=== PATIENT | female | born 1970 | race African-American/Black ===

== ENCOUNTER 2017-08-29 17:56 | Emergency (ER) | payer SELFPAY ==
[~2017-08-29 17:56] MED LIST: ISOVUE-370 76%-LOCM 1 ML ONE
[2017-08-29 18:30] LABS: #Eosinphils 0.1 thou/uL (0.0-0.7); #Lymphocytes 1.5 thou/uL (1.20-3.40); #Monocytes 0.5 thou/uL (0.11-0.59); #Neutrophils 4.4 thou/uL (1.40-6.50); %Basophils 0.1 % (0.0-1.0); %Eosinophils 0.9 % (0.0-10.0); %Lymphocytes 22.7 % (21.0-51.0); %Neutrophils 69.2 % (42.0-75.0); Mean Corpuscular HGB CONC 33.1 g/dL (32.0-36.0); Mean Corpuscular Hemoglobin 31.1 pg (27.0-31.0); Mean Platelet Volume 6.9 fL (7.4-10.4); Platelet Count 230 thou/uL (130-400); RBC Distribution Width 13.2 % (11.5-14.5); Red Blood Cell (RBC) Count 4.49 mill/uL (4.20-5.40); White Blood Cell (WBC) Count 6.4 thou/uL (4.8-10.8)
[2017-08-29 18:45] LABS: ALT (SGPT) 8 U/L (8-55); AST (SGOT) 8 U/L (5-34); Albumin 3.9 g/dL (3.5-5.0); Alkaline Phosphatase 58 U/L (40-150); Anion Gap 10 mmol/L (10-20); BUN (Urea Nitrogen) 6 mg/dL (7.0-18.7); Bilirubin, Total 0.8 mg/dL (0.2-1.2); Calc. Creatinine Clearance 0 mL/min (70-130); Calcium 9.3 mg/dL (7.8-10.44); Carbon Dioxide 28 mmol/L (22-29); Chloride 104 mmol/L (98-107); Estimated GFR-MDRD 82; Glucose 99 mg/dL (70-105); Protein, Total 6.9 g/dL (6.0-8.3); Sodium 138 mmol/L (136-145)
[2017-08-29 18:49] LABS: CKMB 0.2 ng/mL (0-6.6); Troponin I Less than 0.010 ng/mL (< 0.028)
--- NOTE | 2017-08-29 19:11 | RAD ---
RADIOGRAPH CHEST 1 VIEW: 08/29/17 HISTORY: 47-year-old female with chest pain. FINDINGS: The thoracic aorta is tortuous and ectatic. There is no evidence of air space density, pneumothorax, or pulmonary edema. The lateral costophrenic angles are sharp. IMPRESSION: 1) No acute pulmonary findings. 2) Ectasia of thoracic aorta. vianey [] POS: [facility]
[2017-08-29] MEDS ORDERED: HYDROcodone/Acetaminophen 5/325 mg Tablet ONE (19:17)
--- NOTE | 2017-08-29 20:20 | CT ---
CT NECK SOFT TISSUES WITH CONTRAST: 08/29/17 HISTORY: 47-year-old female with right facial swelling and dental pain. FINDINGS: There is poor dentition, with lucencies around the roots of multiple teeth, some of which are probabl y radicular cysts, especially involving the maxilla. There is dehiscence of the cortical bone lateral to one of the maxillary molar teeth. Adjacent to that, there is soft tissue thickening and fat stran ding representing edema in the right buccal space. There is a greater degree of soft tissue edema ant erior to the mandibular symphysis, and to the right and left of the anterior mandible. Streak artifac t from dental amalgam obscures many of the images. Some of the edema extends down fascial planes to t he right submandibular space. Bilateral submandibular glands are unremarkable. Mildly enlarged multip le bilateral submandibular (level Ib) lymph nodes. Additional multiple mildly enlarged, reactive lymp h nodes bilaterally throughout all cervical levels. There are small low density lesions at midline in the pharyngeal mucosal space of the nasopharynx. These are nonspecific, and could represent [place] cysts or mucous retention cysts. There is no retropharyngeal abscess. No major pathology of the la rynx. Thyroid gland is diffusely enlarged, without evidence of discrete mass. Flattening of the heads of the mandibular condyles. Parotid glands are unremarkable. IMPRESSION: 1. Poor dentition. 2. Findings suggestive of right sided dental abscess. 3. Phlegmon/cellulitis involving the soft tissues superficial to, anterior to the mandible. 4. No surgically drainable abscess fluid collection. POS: [facility]
[2017-08-29] MEDS ORDERED: Clindamycin/D5W 600 mg/50 ml Premix Bag ONE (21:24)
[2017-08-29] MEDS ORDERED: Ketorolac Tromethamine 30 MG/ML VIAL ONE (22:24)
--- NOTE | 2017-09-17 00:25 | EKG ---
Test Reason : CP Blood Pressure : / mmHG Vent. Rate : 091 BPM Atrial Rate : 091 BPM P-R Int : 124 ms QRS Dur : 074 ms QT Int : 346 ms P-R-T Axes : 065 -27 055 degrees QTc Int : 425 ms Normal sinus rhythm Possible Left atrial enlargement Left ventricular hypertrophy with repolarization abnormality Cannot rule out Septal infarct , age undetermined Abnormal ECG Confirmed by HECTOR REHMAN ([id number]), makeup editor RASHAD CHAHAL ([id number]) on 09/17/2017 12:24:26 AM Referred By: Confirmed By:HECTOR REHMAN
== END 2017-08-29 22:32 | disposition home or self-care (01) ==
LOC: ERS 17:56
DX: K04.7 Periapical abscess without sinus (principal); I10 Essential (primary) hypertension; F41.9 Anxiety disorder, unspecified; F32.9 Major depressive disorder, single episode, unspecified; F17.210 Nicotine dependence, cigarettes, uncomplicated; F20.9 Schizophrenia, unspecified; Z79.899 Other long term (current) drug therapy
CPT/HCPCS: 36415; 70491; 71045; 80053; 82553; 84484; 85025; 93005; 96365; 96375; J1885; J3490

== ENCOUNTER 2018-07-11 21:49 | Emergency (ER) | payer SELFPAY ==
[2018-07-11] MEDS ORDERED: Ketorolac Tromethamine 30 MG/ML VIAL ONE (22:26)
[2018-07-11] MEDS ORDERED: Metoclopramide HCl 10 MG/2 ML VIAL ONE (22:26)
== END 2018-07-11 23:32 | disposition home or self-care (01) ==
LOC: ERS 21:49
DX: I10 Essential (primary) hypertension (principal); R51 Headache; F41.9 Anxiety disorder, unspecified; F31.9 Bipolar disorder, unspecified; F20.9 Schizophrenia, unspecified; F17.210 Nicotine dependence, cigarettes, uncomplicated; Z79.899 Other long term (current) drug therapy
CPT/HCPCS: 93005; 96365; 96375; J1885; J2765

== ENCOUNTER 2018-08-20 02:14 | Emergency (ER) | payer SELFPAY ==
[2018-08-20 02:46] LABS: Hemoglobin 13.2 g/dL (12.0-16.0); Mean Corpuscular HGB CONC 32.4 g/dL (32.0-36.0); Mean Corpuscular Hemoglobin 30.5 pg (27.0-31.0); Mean Corpuscular Volume 94.3 fL (78.0-98.0); Platelet Count 214 thou/uL (130-400); RBC Distribution Width 13.3 % (11.5-14.5); Red Blood Cell (RBC) Count 4.31 mill/uL (4.20-5.40); White Blood Cell (WBC) Count 4.9 thou/uL (4.8-10.8)
[2018-08-20 03:09] LABS: ALT (SGPT) 17 U/L (8-55); AST (SGOT) 12 U/L (5-34); Albumin 3.8 g/dL (3.5-5.0); Alkaline Phosphatase 52 U/L (40-150); Anion Gap 13 mmol/L (10-20); BUN (Urea Nitrogen) 5 mg/dL (7.0-18.7); Bilirubin, Total 0.3 mg/dL (0.2-1.2); Calc. Creatinine Clearance 0 mL/min (70-130); Carbon Dioxide 24 mmol/L (22-29); Chloride 109 mmol/L (98-107); Estimated GFR-MDRD 84; Globulin 2.9 g/dL (2.4-3.5); Glucose 102 mg/dL (70-105); Potassium 3.6 mmol/L (3.5-5.1); Protein, Total 6.7 g/dL (6.0-8.3); Sodium 142 mmol/L (136-145)
[2018-08-20 03:11] LABS: Band 1 % (5-11); Lymphocytes 56 % (21-51); MDiff Complete? YES; Monocytes 3 % (0-10); Neutrophil 37 % (42-75); Platelet Morphology Comment Appears Adequate; RBC Morphology Normal; Reactive Lymphocytes 3 % (0-10)
--- NOTE | 2018-08-20 08:05 | RAD ---
SINGLE VIEW CHEST: Date: 08/20/18 COMPARISON: 08/29/17. HISTORY: Chest pain and shortness of breath. FINDINGS: Single view of the chest shows a normal sized cardiomediastinal silhouette. There is no evidence of c onsolidation, mass, or pleural effusion. The bones are unremarkable. IMPRESSION: No evidence of acute cardiopulmonary disease. POS: [facility]
== END 2018-08-20 03:49 | disposition left against medical advice (07) ==
LOC: ERS 02:14
DX: Z53.21 Procedure and treatment not carried out due to patient leaving prior to being seen by health care provider (principal)
CPT/HCPCS: 36415; 71045; 80053; 85025; 93005